=== PATIENT | male | born 1990 | race Caucasian/White ===

== ENCOUNTER 2021-01-02 17:41 | Observation (INO) ==
[2021-01-02 20:22] LABS: Basophils % 0.3 % (0.0-0.8); Eosinophils % 0.1 % (0.00-10.9); Hematocrit 49.3 VOL% (42.0-52.0); Hemoglobin 16.8 GM/DL (14.0-18.0); Immature Granulocytes % 0.6 %; Immature Granulocytes Absolute 0.08 #; Lymphocytes # 1.9 10*3/uL (1.4-4.0); Lymphocytes % 13.9 % (21.2-54.2); Mean Corpuscular HGB Conc 34.1 GM/DL (32-36); Mean Platelet Volume 10.8 FL (9.6-12.0); Monocytes % 5.5 % (1.7-12.7); Neutrophils % 79.6 % (38.7-73.9); Platelet Count 276 T/CUMM (130-400); Red Blood Count 5.42 MC/CUMM (3.8-5.5); Red Cell Distribution Width 12.5 % (9.3-17.3); White Blood Count 13.4 T/CUMM (4-12)
[2021-01-02 20:33] LABS: PT Patient Result 11.3 SECS (10.5-12.0); Partial Thromboplastin Time 28.8 SECS (23.8-32.1)
[2021-01-02 20:37] LABS: Albumin 4.6 G/DL (3.4-5.0); Bilirubin,Total 0.7 MG/DL (0.20-1.00); Calcium 8.9 MG/DL (8.5-10.1); Osmolality,Calculated 278.5 MOS/KG (273-304); Potassium 3.9 MMOL/L (3.5-5.1); Total Protein 8.3 G/DL (6.4-8.2)
[2021-01-02] MEDS: DEXTROSE 5% NACL 0.45% 1,000 ML IV SCH (22:47)
[2021-01-03] MEDS: ONDANSETRON 4 MG/2 ML VIAL IV PRN ×2 (00:21→05:13)
[2021-01-03] MEDS: HYDROmorphone 2 MG/1 ML VIAL IV PRN ×2 (00:22→05:12)
[2021-01-03] MEDS ORDERED: ceFAZolin 2,000 MG/50 ML DUPLEX IV ONE (07:26)
[2021-01-03] MEDS ORDERED: DEXAMETHASONE 4 MG/1 ML VIAL ONE ×2 (08:22→10:04)
[2021-01-03] MEDS ORDERED: ROPIVACAINE 0.5% 30 ML VIAL ONE (08:22)
[2021-01-03] MEDS ORDERED: fentaNYL 100 MCG/2 ML VIAL ONE (08:31)
[2021-01-03] MEDS ORDERED: MIDAZOLAM 2 MG/2 ML VIAL ONE (08:31)
[2021-01-03] MEDS ORDERED: SEVOFLURANE 1 UNIT/15 MINUTE INH ONE (10:04)
[2021-01-03] MEDS ORDERED: propofoL 200 MG/20 ML VIAL IV ONE (10:04)
[2021-01-03] MEDS ORDERED: LIDOCAINE 2% 5 ML VIAL ONE (10:04)
[2021-01-03] MEDS ORDERED: ONDANSETRON 4 MG/2 ML VIAL ONE (10:04)
[2021-01-03] MEDS ORDERED: PROMETHAZINE 25 MG/1 ML VIAL IM PRN (11:04)
[2021-01-03] MEDS ORDERED: diphenhydrAMINE CAP 25 MG CAPSULE PO PRN (11:04)
[2021-01-03] MEDS ORDERED: MAGNESIUM HYDROXIDE SUSP 30 ML UDCUP PO PRN (11:04)
[2021-01-03] MEDS ORDERED: ACETAMINOPHEN 325 MG TABLET PO PRN (11:04)
[2021-01-03] MEDS: DEXTROSE 5% NACL 0.45% 1,000 ML IV SCH (22:10)
[2021-01-04] MEDS ORDERED: PANTOPRAZOLE 40 MG TABLET PO SCH (09:00)
[2021-01-04 11:13] VITALS: BP 123/62
== END 2021-01-04 11:35 | disposition home or self-care (01) ==
LOC: N.ED 17:41 → N.EDINP 17:41 → N.3E 23:33
PROVIDERS: ADMIT Orthopaedic Surgery; ATTEND Orthopaedic Surgery